=== PATIENT | female | born 1990 | race American Indian/Alaskan Native ===

== ENCOUNTER 2017-01-14 01:40 | Emergency (ER) | payer SELFPAY | END 2017-01-14 01:41 | disposition left against medical advice (07) | LOC: ED 01:40 | DX: R10.9 Unspecified abdominal pain (principal); R11.10 Vomiting, unspecified; R42 Dizziness and giddiness; Z53.21 Procedure and treatment not carried out due to patient leaving prior to being seen by health care provider ==

== ENCOUNTER 2017-02-05 12:19 | Emergency (ER) | payer MEDICAID ==
[2017-02-05 14:31] VITALS: BP 100/62
--- NOTE | 2017-02-05 15:45 | Ultrasound Report ---
OB sonogram: History: Cramping/bleeding. Findings: There is noted single intrauterine gestation with cephalic presentation. Normal NORMA. Placenta is posterior and grade 1. heart rate 138 per minute. Cervical length 3.6 cm. BPD 4.5 cm corresponding to 19 weeks and 5 days of gestation. Head circumference 16.7 cm corresponding to 19 weeks and 3 days of gestation. Abdominal circumference 13.18 cm corresponding to 18 weeks and 5 days of gestation. Femur length 2.1 cm corresponding to 19 weeks and 6 days of gestation. Head circumference to abdominal circumference ratio 1.2. Cephalic index 78.8%. Estimated weight 284 g. Normal neuroanatomy, body anatomy and spine. Clinical age 20 weeks. Estimated date of conception 06/25/17. Ultrasound age 19 weeks and 3 days. Estimated date of conception 06/29/17.
[2017-02-05 16:04] LABS: Basophils % (Auto) 0.4 % (0.0-1.8); Eosinophils % (Auto) 1.9 % (0.0-4.3); Hematocrit 34.8 % (30.3-42.9); Hemoglobin 11.3 gm/dl (10.1-14.3); Mean Corpuscular HGB Conc 33 % (30-34); Mean Corpuscular Hemoglobin 29 pg (28-32); Mean Corpuscular Volume 90 fl (79-97); Platelet Count 199 K/mm3 (140-440); Red Blood Count 3.86 M/mm3 (3.65-5.03); Red Cell Distribution Width 14.2 % (13.2-15.2); White Blood Count 4.6 K/mm3 (4.5-11.0)
--- NOTE | 2017-02-06 14:27 | ED Elopement Review ---
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
== END 2017-02-05 23:15 | disposition left against medical advice (07) ==
LOC: ED 12:19
DX: O26.852 Spotting complicating pregnancy, second trimester (principal); Z3A.20 20 weeks gestation of pregnancy; Z53.21 Procedure and treatment not carried out due to patient leaving prior to being seen by health care provider
CPT/HCPCS: 36415; 76805; 84702; 85025; 86850; 86900; 86901

== ENCOUNTER 2017-06-13 22:22 | Inpatient (IN) | payer MEDICAID ==
--- NOTE | 2017-06-14 00:33 | History and Physical Report ---
History of Present Illness Date of examination: 06/14/17 Date of admission: 06/13/17 23:47 History of present illness: Patient presented to labor and delivery complaints of leaking fluid. Evaluation by nurse in triage revealed rupture membranes with the cervix 2 cm. Menstrual History Regularity: regular Menses every: 28 days Duration: 4 LMP: 09/23/2016 LMP reliability: definite LMP character: normal test type: urine test Date: 11/22/2016 BC at conception: none Planned ? no EDC Calculations LMP: 06/30/2017 EDC Confirmation: 06/30/2017 Past History : 2 Term Births: 1 Living Children: 1 Para: 1 # 1 Delivery date: 10/15/2013 Weeks Gestation: 39 labor: no Delivery type: Anesthesia type: epidural Delivery location: [place] Infant Sex: Male weight: 6-12 Comments: no problems Past Medical History: Negative Past Medical History Past Surgical History: negative Past Medical History Anesthesia Complications: negative Anemia: negative Autoimmune Disorder: negative Bleeding Disorder: negative Blood Transfusions: negative Breast Disease: negative Diabetes: negative Heart Disease: negative Hypertension: negative Hepatitis/Liver Disease: negative Kidney Disease/UTI: negative Neurologic/Epilepsy/Migraines: negative Phlebitis/Varicosities: negative Psychiatric: negative Pulmonary Disease/Asthma: negative Thyroid Disease: negative Hospitalizations: negative Surgery (Non-nurse gynecology): negative Infection History Hx of STD: none HIV Risk Eval: low risk Hepatitis B Risk Eval: low risk Personal hx. of genital herpes: no Partner hx. of genital herpes: no Rash, Viral, or Febrile illness since last LMP? no Varicella/Chicken Pox Status: Immunized TB Risk: no Genetic History Congenital Heart Defect: Mom: no Dad: no Dana Disease: Mom: no Dad: no Thalassemia Mom: no Dad: no Neural Tube Defect Mom: no Dad: no Down's Syndrome Mom: no Dad: no Andrey-Sachs Mom: no Dad: no Sickle Cell Disease/Trait Mom: no Dad: no Hemophilia Mom: no Dad: no Muscular Dystrophy Mom: no Dad: no Cystic Fibrosis Mom: no Dad: no Raghavendra Chorea Mom: no Dad: no Mental Retardation Mom: no Dad: no Fragile X Mom: no Dad: no Other Genetic/Chromosomal Disorder Mom: no Dad: no Child w/other defect Mom: no Dad: no Enviromental Exposures Xray Exposure: no Medication, drug, or alcohol use since LMP: no Chemical/Other Exposure: no Exposure to Cat Liter: no Active Medications (reviewed today): None Current Allergies (reviewed today): No known allergies Past History Past Medical History: other (see HPI) Past Surgical History: other (see HPI) 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: 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 (see HPI) Family/Genetic History: other (see HPI) Social history: other (see HPI) - Obstetrical History Expected Date of Delivery: 06/30/17 Actual Gestation: 37 Week(s) 5 Day(s) : 2 Para: 1 Hx # Term Pregnancies: 1 Number of Pregnancies: 0 Spontaneous Abortions: 0 Induced : 0 Number of Living Children: 1 Medications and Allergies Allergies Allergy/AdvReac Type Severity Reaction Status Date / Time No Known Allergies Allergy Unverified 02/05/17 14:31 Review of Systems Genitourinary: leakage of fluid - Vital Signs Vital signs: Vital Signs Pulse BP 90 111/72 06/13/17 22:34 06/13/17 22:34 Temp Pulse Resp BP Pulse Ox 98.7 F 88 18 112/68 98 06/14/17 00:07 06/14/17 00:18 06/14/17 00:07 06/14/17 00:07 06/14/17 00:18 - Physical Exam Breasts: Positive: deferred Cardiovascular: Regular rate Abdomen: Positive: normal appearance, soft Genitourinary (Female): Positive: normal external genitalia Vagina: Positive: normal moisture Anus/Rectum: Positive: normal perianal skin Extremities: Positive: edema Results All other labs normal. Assessment and Plan - Patient Problems (1) Premature rupture of membranes Current Visit: Yes Status: Acute Qualifiers: PROM onset of labor timing: unspecified duration between rupture of membranes and onset of labor PROM gestational age: full term Qualified Code( s): O42.92 - Full-term premature rupture of membranes, unspecified as to length of time between rupture and onset of labor Plan to address problem: Will admit to follow labor protocol. If from no onset of labor will augment with Pitocin
[2017-06-14] MEDS ORDERED: XYLOCAINE 2% INFILTRATI ONE (00:34)
[2017-06-14] MEDS ORDERED: STADOL IV PRN (00:34)
[2017-06-14] MEDS ORDERED: PHENERGAN PO PRN (00:34)
[2017-06-14] MEDS ORDERED: ePHEDrine SULFATE IV PRN ×2 (00:34→07:30)
[2017-06-14] MEDS ORDERED: BRETHINE SUB-Q PRN (00:34)
[2017-06-14] MEDS ORDERED: BRETHINE IVP PRN (00:34)
[2017-06-14] MEDS ORDERED: PITOCin/NS 30 UNIT/500ML 30,000 MILLIUNITS/500 ML BAG IV ONE (00:53)
[2017-06-14] MEDS ORDERED: PITOCin/NS 20 UNIT/1000ML DRIP 20 UNITS/1,000 ML BAG IV SCH (01:00)
[2017-06-14] MEDS: LACTATED RINGERS 1,000 ML IV SCH ×3 (01:12→08:02)
[2017-06-14 01:21] LABS: Hematocrit 32.1 % (30.3-42.9); Hemoglobin 10.7 gm/dl (10.1-14.3); Mean Corpuscular HGB Conc 33 % (30-34); Mean Corpuscular Hemoglobin 30 pg (28-32); Mean Corpuscular Volume 90 fl (79-97); Platelet Count 244 K/mm3 (140-440); Red Blood Count 3.54 M/mm3 (3.65-5.03); Red Cell Distribution Width 13.5 % (13.2-15.2); White Blood Count 8.7 K/mm3 (4.5-11.0)
[2017-06-14] MEDS ORDERED: SUBLIMAZE ONE ×2 (05:41→06:47)
--- NOTE | 2017-06-14 06:02 | Progress Note ---
Assessment and Plan Epidural bolus infusing tracing low baseline with minimal variability. Ctx Q 1-2 Pit decreased from 16 m,u to 10 mu SVE 3,70,-1 Meconium stained fluid noted now ISE IUPC placed. All findings explained to pt. Pit @ 10 mu Re-eval after epidural Subjective - Subjective Date of service: 06/14/17 Patient reports: movement normal Objective - Vital Signs Vital Signs: Vital Signs - 12hr 06/13/17 06/13/17 06/14/17 22:34 22:45 00:02 Temperature 98.2 F Pulse Rate 90 90 80 Respiratory 18 Rate Blood Pressure 111/72 111/72 112/68 O2 Sat by Pulse Oximetry 06/14/17 06/14/17 06/14/17 00:03 00:07 00:08 Temperature 98.7 F Pulse Rate 80 83 89 Respiratory 18 Rate Blood Pressure 112/68 O2 Sat by Pulse 99 97 98 Oximetry 06/14/17 06/14/17 06/14/17 00:13 00:18 02:07 Temperature Pulse Rate 83 88 85 Respiratory Rate Blood Pressure 90/54 O2 Sat by Pulse 97 98 Oximetry 06/14/17 06/14/17 06/14/17 04:52 04:57 05:02 Temperature Pulse Rate 83 83 87 Respiratory Rate Blood Pressure O2 Sat by Pulse 98 98 98 Oximetry 06/14/17 06/14/17 06/14/17 05:07 05:33 05:38 Temperature Pulse Rate 79 78 64 Respiratory Rate Blood Pressure O2 Sat by Pulse 97 98 99 Oximetry 06/14/17 06/14/17 06/14/17 05:43 05:48 05:53 Temperature Pulse Rate 69 73 91 H Respiratory Rate Blood Pressure O2 Sat by Pulse 99 99 99 Oximetry - Exam Breasts: deferred Cardiovascular: Regular rate Lungs: Normal air movement Abdomen: Present: normal appearance, soft. Absent: distention, tenderness Uterus: Present: normal FHR: auscultation normal, category 1 (low baseline ) Uterine Contraction Monitor Mode: Internal Cervical Dilatation: 3 (ISE/IUPC placed) Cervical Effacement Percentage: 70 station: -1 Uterine Contraction Pattern: Regular (pitocin decreased to 10 MU) Uterine Contraction Intensity: Moderate Extremities: normal - Labs Labs: Abnormal Labs 06/13/17 00:00 RBC 3.54 L Laboratory Results - last 24 hr 06/13/17 06/13/17 00:00 00:00 WBC 8.7 RBC 3.54 L Hgb 10.7 Hct 32.1 MCV 90 MCH 30 MCHC 33 RDW 13.5 Plt Count 244 Blood Type O POSITIVE Antibody Screen Negative
[2017-06-14] MEDS ORDERED: SUBLIMAZE IV ONE ×2 (06:47)
--- NOTE | 2017-06-14 07:23 | Anesthesia Consultation ---
Anesthesia Consult and Med Hx Date of service: 06/14/17 - Airway Anesthetic Teeth Evaluation: Good ROM Head & Neck: Adequate Mental/Hyoid Distance: Adequate Intubation Access Assessment: Probably Good - Pre-Operative Health Status ASA Pre-Surgery Classification: ASA2, Emergency Proposed Anesthetic Plan: Epidural, Spinal - Pulmonary Hx Asthma: No COPD: No Hx Pneumonia: No - Cardiovascular System Hx Hypertension: No - Central Nervous System Hx Seizures: No Hx Psychiatric Problems: No - Endocrine Hx Renal Disease: No Hx End Stage Renal Disease: No Hx Hypothyroidism: No Hx Hyperthyroidism: No - Hematic Hx Anemia: Yes Hx Sickle Cell Disease: No - Other Systems Hx Alcohol Use: No
[2017-06-14] MEDS ORDERED: NARCAN 2 MG/2 ML IV PRN (07:30)
[2017-06-14] MEDS ORDERED: XYLOCAINE MPF 2% ONE (07:37)
--- NOTE | 2017-06-14 07:56 | Progress Note ---
Assessment and Plan Epidural in place SVE 5,90,0 Pit per protocol Anticipate delivery Subjective - Subjective Date of service: 06/14/17 (epidural placed) Patient reports: movement normal Objective - Vital Signs Vital Signs: Vital Signs - 12hr 06/13/17 06/13/17 06/14/17 22:34 22:45 00:02 Temperature 98.2 F Pulse Rate 90 90 80 Respiratory 18 Rate Blood Pressure 111/72 111/72 112/68 O2 Sat by Pulse Oximetry 06/14/17 06/14/17 06/14/17 00:03 00:07 00:08 Temperature 98.7 F Pulse Rate 80 83 89 Respiratory 18 Rate Blood Pressure 112/68 O2 Sat by Pulse 99 97 98 Oximetry 06/14/17 06/14/17 06/14/17 00:13 00:18 02:07 Temperature Pulse Rate 83 88 85 Respiratory Rate Blood Pressure 90/54 O2 Sat by Pulse 97 98 Oximetry 06/14/17 06/14/17 06/14/17 04:52 04:57 05:02 Temperature Pulse Rate 83 83 87 Respiratory Rate Blood Pressure O2 Sat by Pulse 98 98 98 Oximetry 06/14/17 06/14/17 06/14/17 05:07 05:33 05:38 Temperature Pulse Rate 79 78 64 Respiratory Rate Blood Pressure O2 Sat by Pulse 97 98 99 Oximetry 06/14/17 06/14/17 06/14/17 05:43 05:48 05:53 Temperature Pulse Rate 69 73 91 H Respiratory Rate Blood Pressure O2 Sat by Pulse 99 99 99 Oximetry 06/14/17 06/14/17 06/14/17 05:58 06:03 06:08 Temperature Pulse Rate 82 70 67 Respiratory Rate Blood Pressure O2 Sat by Pulse 100 100 99 Oximetry 06/14/17 06/14/17 06/14/17 06:13 06:18 06:23 Temperature Pulse Rate 66 84 61 Respiratory Rate Blood Pressure O2 Sat by Pulse 100 100 100 Oximetry 06/14/17 06/14/17 06/14/17 06:28 06:33 06:38 Temperature Pulse Rate 62 77 86 Respiratory Rate Blood Pressure O2 Sat by Pulse 100 100 100 Oximetry 06/14/17 06/14/17 06/14/17 07:01 07:02 07:04 Temperature Pulse Rate 111 H 114 H 96 H Respiratory Rate Blood Pressure 127/68 111/71 O2 Sat by Pulse 99 Oximetry 06/14/17 06/14/17 06/14/17 07:06 07:07 07:10 Temperature Pulse Rate 104 H 102 H 99 H Respiratory Rate Blood Pressure 108/65 113/67 110/63 O2 Sat by Pulse 98 Oximetry 06/14/17 06/14/17 06/14/17 07:11 07:12 07:14 Temperature Pulse Rate 100 H 99 H 86 Respiratory Rate Blood Pressure 116/82 119/67 O2 Sat by Pulse 98 Oximetry 06/14/17 06/14/17 06/14/17 07:16 07:17 07:18 Temperature Pulse Rate 75 95 H 82 Respiratory Rate Blood Pressure 102/72 111/69 O2 Sat by Pulse 100 Oximetry 06/14/17 06/14/17 06/14/17 07:20 07:22 07:24 Temperature Pulse Rate 85 77 75 Respiratory Rate Blood Pressure 113/71 112/72 114/71 O2 Sat by Pulse 98 Oximetry 06/14/17 06/14/17 06/14/17 07:26 07:27 07:28 Temperature Pulse Rate 83 89 82 Respiratory Rate Blood Pressure 114/68 134/68 O2 Sat by Pulse 99 Oximetry 06/14/17 06/14/17 06/14/17 07:30 07:32 07:34 Temperature Pulse Rate 94 H 95 H 74 Respiratory Rate Blood Pressure 119/75 126/71 117/66 O2 Sat by Pulse 97 Oximetry 06/14/17 06/14/17 06/14/17 07:36 07:37 07:38 Temperature Pulse Rate 89 76 100 H Respiratory Rate Blood Pressure 116/74 122/75 O2 Sat by Pulse 100 Oximetry 06/14/17 06/14/17 06/14/17 07:40 07:42 07:44 Temperature Pulse Rate 95 H 95 H 88 Respiratory Rate Blood Pressure 110/55 114/57 106/57 O2 Sat by Pulse 97 Oximetry - Exam Breasts: deferred Cardiovascular: Regular rate Lungs: Normal air movement Abdomen: Present: normal appearance, soft. Absent: distention, tenderness Uterus: Present: normal FHR: auscultation normal, category 1 Uterine Contraction Monitor Mode: Internal Cervical Dilatation: 5 Cervical Effacement Percentage: 90 station: 0 Uterine Contraction Pattern: Regular Uterine Tone Measurement Phase: Resting Uterine Contraction Intensity: Moderate Extremities: normal Deep Tendon Reflex Grade: Normal +2 - Labs Labs: Abnormal Labs 06/13/17 00:00 RBC 3.54 L Laboratory Results - last 24 hr 06/13/17 06/13/17 00:00 00:00 WBC 8.7 RBC 3.54 L Hgb 10.7 Hct 32.1 MCV 90 MCH 30 MCHC 33 RDW 13.5 Plt Count 244 Blood Type O POSITIVE Antibody Screen Negative
[2017-06-14] MEDS ORDERED: fentaNYL-BUPIV 2 MCG/ML-0.125% 200 MCG/100 ML BAG EPIDURAL SCH (08:00)
[2017-06-14] MEDS ORDERED: CYTOTEC ONE (08:41)
--- NOTE | 2017-06-14 08:59 | Procedure Note ---
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 Pit IVFs Uterus boggy, several lg clots expressed Cytotec 800mcg HI placed 2-0 vicryl for repair 8/9, EBL 500, Wgt 6-14 Baby skin to skin with dad. FF @ umb Lochia mod Mom and baby remain LDR stable. - A at 1 minute: 8 at 5 minutes: 9 Infant Gender: Male (wgt 6-14)
[2017-06-14] MEDS ORDERED: CYTOTEC PR ONE (09:05)
[2017-06-14] MEDS ORDERED: LANSINOH TP PRN (09:07)
[2017-06-14] MEDS ORDERED: BENADRYL PO PRN (09:07)
[2017-06-14] MEDS ORDERED: MILK OF MAGNESIA PO PRN (09:07)
[2017-06-14] MEDS ORDERED: ZOFRAN IV PRN (09:07)
[2017-06-14] MEDS ORDERED: TUCKS PAD TP PRN (09:07)
[2017-06-14] MEDS ORDERED: DULCOLAX PR PRN (09:07)
[2017-06-14] MEDS ORDERED: TYLENOL PO PRN (09:07)
[2017-06-14] MEDS ORDERED: PRENATAL VITAMIN PO SCH (10:00)
[2017-06-14] MEDS ORDERED: COLACE PO SCH (10:00)
[2017-06-14] MEDS ORDERED: SODIUM CHLORIDE FLUSH SYRINGE 10 ML IV NR (10:00)
[2017-06-14 18:17] LABS: Hematocrit 29.3 % (30.3-42.9)
[2017-06-14] MEDS: NORCO 5/325 PO PRN (19:22)
[2017-06-14] MEDS: MOTRIN PO SCH (21:43)
[2017-06-15] MEDS: NORCO 5/325 PO PRN ×3 (01:11→18:07)
[2017-06-15] MEDS: MOTRIN PO SCH ×2 (04:02→13:08)
[2017-06-15] MEDS ORDERED: BOOSTRIX IM ONE ×2 (06:00→09:07)
--- NOTE | 2017-06-15 08:41 | Progress Note ---
Assessment and Plan Patient doing well, desires d/c home today. Pooja pricila, RONNYSAF, H&H 08/19, without concern. Plan for d/c home today w/ f/u 1 week in office for infant's circ. - Patient Problems (1) Spontaneous vaginal delivery Current Visit: Yes Status: Acute Subjective - Subjective Date of service: 06/15/17 Principal diagnosis: day #1 s/p Patient reports: appetite normal, voiding normally, pain well controlled, ambulating normally, no dizzy ambulation, no nauseated : doing well, nursing well Objective - Vital Signs Latest vital signs: Vital Signs Temp Pulse Resp BP Pulse Ox 06/15/17 00:40 98.1 F 74 18 96/63 06/14/17 19:50 98.6 F 74 18 98/67 06/14/17 16:45 98.1 F 64 18 112/71 06/14/17 10:50 98.3 F 80 20 116/70 06/14/17 09:45 109 H 100 06/14/17 09:40 104 H 99 06/14/17 09:35 107 H 100 06/14/17 09:30 107 H 100 06/14/17 09:22 97.8 F 100 H 16 100/58 90 06/14/17 09:06 110 H 90 06/14/17 09:05 113 H 96 06/14/17 09:00 105 H 96 06/14/17 08:45 105 H 99 Intake and Output 06/14/17 06/15/17 06/15/17 22:59 06:59 14:59 Intake Total 605 480 Output Total 700 Balance -95 480 Intake: IV 125 PITOCin/NS 20 UNIT/1000ML 125 DRIP 20 units In 1,000 ml @ 125 mls/hr IV DIRECT JOSH Rx#:[id number] Oral 480 480 Output: Urine 700 Void 700 Other: Total, Intake Amount 240 240 Total, Output Amount 700 # Voids Void 1 1 - Exam Breasts: Present: normal, Cardiovascular: Present: Regular rate Lungs: Present: Clear to auscultation, Normal air movement Abdomen: Present: normal appearance, soft Vulva: both: laceration/episiotomy Uterus: Present: normal, firm, fundal height at umbilicus Extremities: Present: normal Deep Tendon Reflex Grade: Normal +2 Incision: Present: normal, dry, intact - Labs Labs: Abnormal lab results 06/14/17 Range/Units 17:53 Hgb 10.0 L (10.1-14.3) gm/dl Hct 29.3 L (30.3-42.9) %
--- NOTE | 2017-06-15 08:43 | Discharge Summary ---
Providers - Providers Date of Admission: 06/13/17 23:47 Date of discharge: 06/15/17 (desires d/c home) Attending physician: ADALI HIDALGO Primary care physician: ADALI HIDALGO Hospitalization Reason for admission: active labor Delivery: Episiotomy: midline Laceration: none Incision: normal, dry, intact Other procedures: none complications: none Discharge diagnosis: IUP at term delivered baby: male Hospital course: uncomplicated vaginal delivery Condition at discharge: Good Disposition: DC-01 TO HOME OR SELFCARE - Discharge Diagnoses (1) Spontaneous vaginal delivery Status: Acute Plan - Discharge Medications Prescriptions: Ibuprofen [Motrin 800 MG tab] 800 mg PO Q8HR PRN #30 tablet PRN Reason: Pain Lidocain2.5%/Prilocai2.5% [Emla] 5 gm TP ONCE PRN #1 tube PRN Reason: Pain - Provider Discharge Summary Activity: routine, no sex for 6 weeks, no heavy lifting 4 weeks, no strenuous exercise Diet: routine Instructions: routine Additional instructions: [] Smoking cessation referral if applicable(refer to patient education folder for contact #) [] Refer to [facility] Booklet Call your doctor immediately for: * Fever > 100.5 * Heavy vaginal bleeding ( >1 pad per hour) * Severe persistent headache * Shortness of breath * Reddened, hot, painful area to leg or breast * Drainage or odor from incision. * Keep incision clean and dry at all times and follow doctor's instructions regarding bathing/showering - Follow up plan Follow up: ADALI HIDALGO MD [Primary Care Provider] - 7 Days (Congratulations! Please call [phone] to schedule your son's circumcision in 1 week and your visit in 4 weeks. Bring EMLA cream to your son's appointment and await further instructions. Call for any questions or concerns.)
[2017-06-15] MEDS ORDERED: M-M-R II VACCINE SUB-Q ONE (09:07)
--- NOTE | 2017-06-15 09:52 | Progress Note ---
Subjective Date of service: 06/15/17 Principal diagnosis: day #1 s/p Interval history: Patient seen, satisfied with CSE for delivery, ambulating, with pain level of zero. Objective - Constitutional Vitals: Vital Signs - 12hr 06/15/17 06/15/17 06/15/17 00:40 08:00 08:43 Temperature 98.1 F 98.2 F Pulse Rate 74 72 Respiratory 18 18 18 Rate Blood Pressure 96/63 102/69 - Labs CBC & Chem 7: 06/14/17 17:53 Labs: Abnormal lab results 06/14/17 Range/Units 17:53 Hgb 10.0 L (10.1-14.3) gm/dl Hct 29.3 L (30.3-42.9) %
[2017-06-15 18:53] VITALS: BP 109/73
== END 2017-06-15 23:15 | disposition home or self-care (01) | DRG 775 ==
LOC: TRG 22:22 → LD 23:47 → OB 06-14 11:28
PROVIDERS: ADMIT Obstetrics & Gynecology; ATTEND Obstetrics & Gynecology
PROC: 10E0XZZ Delivery of Products of Conception, External Approach (ICD-10-PCS; principal; 2017-06-14)
PROC: 0W8NXZZ Division of Female Perineum, External Approach (ICD-10-PCS; 2017-06-14)
PROC: 3E0S3CZ (ICD-10-PCS; 2017-06-14)
PROC: 00HU33Z Insertion of Infusion Device into Spinal Canal, Percutaneous Approach (ICD-10-PCS; 2017-06-14)
PROC: 3E0234Z Introduction of Serum, Toxoid and Vaccine into Muscle, Percutaneous Approach (ICD-10-PCS; 2017-06-15)
DX: O42.92 Full-term premature rupture of membranes, unspecified as to length of time between rupture and onset of labor (principal); Z37.0 Single live birth; Z3A.37 37 weeks gestation of pregnancy; O70.1 Second degree perineal laceration during delivery; Z23 Encounter for immunization
CPT/HCPCS: 36415; 85014; 85018; 85027; 86850; 86900; 86901; 90471; 90715; 99211; G0463; J2590; J3010; J7120

== ENCOUNTER 2019-01-17 11:42 | Outpatient (CLI) | payer MEDICAID ==
[2019-01-17 12:10] VITALS: BP 96/55
[2019-01-17] MEDS ORDERED: LACTATED RINGERS 500 ML IV ONE (12:12)
[2019-01-17 13:06] LABS: Bacteria,Urine 2+ /HPF (Negative); Bilirubin,Urine NEG (Negative); Blood,Urine NEG (Negative); Color,Urine Yellow (Yellow); Mucus,Urine 1+ /HPF; Protein,Urine <15 mg/dL mg/dL (Negative)
[2019-01-17] MEDS ORDERED: BRETHINE SUB-Q STA (13:25)
[2019-01-17] MEDS ORDERED: TYLENOL PO ONE (15:01)
== END 2019-01-17 15:38 | disposition home or self-care (01) ==
LOC: TRG 11:42
PROVIDERS: ATTEND Obstetrics & Gynecology
DX: O21.2 Late vomiting of pregnancy (principal); O26.893 Other specified pregnancy related conditions, third trimester; M54.9 Dorsalgia, unspecified; R25.2 Cramp and spasm; Z3A.30 30 weeks gestation of pregnancy
CPT/HCPCS: 59025; 81001; 96372; J3105; J7120; 96360; 96361

== ENCOUNTER 2019-02-28 00:11 | Inpatient (IN) | payer MEDICAID ==
[2019-02-28] MEDS ORDERED: LACTATED RINGERS 500 ML IV ONE (00:37)
[2019-02-28] MEDS ORDERED: LACTATED RINGERS 1,000 ML ONE ×2 (00:45→02:00)
--- NOTE | 2019-02-28 02:57 | Ultrasound Report ---
PROCEDURE: US OB BPP WO NON-STRESS TECHNIQUE: Sonographic evaluation for breathing, movement, tone, and amniotic flui d volume was performed. HISTORY: labor for bpp COMPARISONS: None . FINDINGS: FETUS Amniotic fluid volume Normal-score 2. At least one vertical pocket >2 cm or more in vertical axis . breathin . movement: 0 . tone: 0 . Score: 2 . IMPRESSION: Biophysical profile score of 2 out of 8 . This document is electronically signed by Shari Valladares DO., Feb 28 2019 02:55:10 AM ET
[2019-02-28] MEDS ORDERED: REGLAN IV ONE (03:11)
[2019-02-28] MEDS ORDERED: PEPCID IV ONE ×2 (03:11→03:14)
[2019-02-28] MEDS ORDERED: BICITRA PO ONE (03:11)
[2019-02-28] MEDS ORDERED: ANCEF/STERILE WATER 2 GM/20 ML 2 GM/20 ML SYRINGE IV ONE (03:14)
[2019-02-28] MEDS ORDERED: REGLAN ONE (03:14)
[2019-02-28] MEDS ORDERED: BICITRA ONE (03:14)
--- NOTE | 2019-02-28 03:21 | History and Physical Report ---
<KIMI DYER Luli - Last Filed: 02/28/19 03:13> History of Present Illness Date of examination: 02/28/19 Chief complaint: s/p fall @ 2200, no movement all day yesterday History of present illness: EDC Confirmation: 03/23/2019 Past History : 3 Term Births: 2 Living Children: 2 Para: 2 # 1 Delivery date: 10/15/2013 Weeks Gestation: 39 labor: no Delivery type: Anesthesia type: epidural Delivery location: [place] Sex: Male weight: 6-12 Comments: no problems # 2 Delivery date: 06/14/2017 Weeks Gestation: 37 Delivery type: Vaginal Anesthesia type: epidural Delivery location: [facility] Infant Sex: male weight: 6.88 Comments: rupture of membranes Past Medical History: Reviewed history from 11/22/2016 and no changes required: Negative Past Medical History Past Surgical History: Reviewed history from 11/22/2016 and no changes required: negative Past Medical History Anesthesia Complications: negative Anemia: negative Autoimmune Disorder: negative Bleeding Disorder: negative Blood Transfusions: negative Breast Disease: negative Diabetes: negative Heart Disease: negative Hypertension: negative Hepatitis/Liver Disease: negative Kidney Disease/UTI: negative Neurologic/Epilepsy/Migraines: negative Phlebitis/Varicosities: negative Psychiatric: negative Pulmonary Disease/Asthma: negative Thyroid Disease: negative Hospitalizations: negative Surgery (Non-gmat instructor): negative Abnormal PAP: negative VIELKA Exposure: negative Infertility: negative Uterine Anomaly: negative Uterine Surgery (not C/S): negative Other Gynecologic Problems: negative Infection History Hx of STD: none HIV Risk Eval: low risk Hepatitis B Risk Eval: low risk Personal hx. of genital herpes: no Partner hx. of genital herpes: no Rash, Viral, or Febrile illness since last LMP? no Varicella/Chicken Pox Status: Immunized Genetic History Congenital Heart Defect: Mom: no Dad: no Dana Disease: Mom: no Dad: no Thalassemia Mom: no Dad: no Neural Tube Defect Mom: no Dad: no Down's Syndrome Mom: no Dad: no Andrey-Sachs Mom: no Dad: no Sickle Cell Disease/Trait Mom: no Dad: no Hemophilia Mom: no Dad: no Muscular Dystrophy Mom: no Dad: no Cystic Fibrosis Mom: no Dad: no Raghavendra Chorea Mom: no Dad: no Mental Retardation Mom: no Dad: no Fragile X Mom: no Dad: no Other Genetic/Chromosomal Disorder Mom: no Dad: no Child w/other defect Mom: no Dad: no Enviromental Exposures Xray Exposure: no Medication, drug, or alcohol use since LMP: no Chemical/Other Exposure: no Exposure to Cat Liter: no Hx of Parvovirus (Fifth Disease): no Occupational Exposure to Children: none Active Medications (reviewed today): None Current Allergies: No known allergies Past History Past Medical History: other (see HPI) Past Surgical History: other (see HPI) CHOKE REAMER History: other (see HPI) Family/Genetic History: other (see HPI) - Obstetrical History Expected Date of Delivery: 03/23/19 Actual Gestation: 36 Week(s) 5 Day(s) : 3 Para: 2 Hx # Term Pregnancies: 2 Number of Pregnancies: 0 Spontaneous Abortions: 0 Induced : 0 Number of Living Children: 2 Medications and Allergies Allergies Allergy/AdvReac Type Severity Reaction Status Date / Time No Known Allergies Allergy Verified 06/14/17 00:38 Home Medications Medication Instructions Recorded Confirmed Last Taken Type Ibuprofen [Motrin 800 MG tab] 800 mg PO Q8HR PRN #30 tablet 06/15/17 Unknown Rx Lidocain2.5%/Prilocai2.5% [Emla] 5 gm TP ONCE PRN #1 tube 06/15/17 Unknown Rx Review of Systems All systems: negative - Vital Signs Vital signs: Vital Signs Pulse BP 94 H 101/56 02/28/19 00:21 02/28/19 00:21 Temp Pulse Resp BP Pulse Ox 85 95/53 02/28/19 02:42 02/28/19 02:42 - Physical Exam Breasts: Positive: normal Cardiovascular: Regular rate Lungs: Positive: Clear to auscultation, Normal air movement Abdomen: Positive: normal appearance, soft Genitourinary (Female): Positive: normal external genitalia - Obstetrical FHR: category 3 FHR comments: BPP 2/10 for NORMA only Uterine Contraction Monitor Mode: External Uterine Contraction Pattern: Irregular Uterine Tone Measurement Phase: Contraction Uterine Contraction Intensity: Mild Results All other labs normal. Assessment and Plan 28y/o @ 36+5 WEEKS admitted for nonreassuring status s/p fall. Pt reports falling down 7 stairs @ 2200 last night, states she feel on her butt and bumped down the stairs. at that time, she realized she had not felt the baby move all day yesterday. FHT with min variability upon admission, did not improve after IVF hydration. BPP 2/8 for NORMA. several late decels noted on tracing. Dr. Josue bliss and lei. discussed with patient need for urgent delivery as baby is showing signs of distress, she is not in labor and remote from [facility]. c/s delivery is advisable as baby is not likely to tolerate IOL. Advised patient risks of c/s including but not limited to damage or injury to surrounding organs and need for blood transfusion. pt agrees and wishes to proceed with operative delivery. Consents signed. pre-op orders in EMR. - Patient Problems (1) Non-reassuring status Current Visit: Yes Status: Acute (2) Status post fall Current Visit: Yes Status: Acute (3) 36 weeks gestation of Current Visit: Yes Status: Acute <ADALI HIDALGO - Last Filed: 02/28/19 08:26> History of Present Illness Date of admission: 02/28/19 03:11 Chief complaint: Ms Magaña called on 02/25/2019 at approxiamately 2200 with a complaint of bloody urine cramping. At that time patient was advised to go to labor and delivery for evaluation but she did not comply with that advice. Medications and Allergies Active Meds: Active Medications Acetaminophen (Tylenol) 650 mg PO Q4H PRN PRN Reason: Fever >100.5/FOSTER Diphtheria/Tetanus/Acell Pertussis (Boostrix) 0.5 ml IM .ONCE ONE Stop: 03/01/19 06:01 Ferrous Sulfate (Feosol) 325 mg PO QDAY JOSH Hydromorphone HCl (Dilaudid) 0.5 mg IV Q4H PRN PRN Reason: breakthrough pain > 7/10 Hydromorphone HCl (Dilaudid) 0.5 mg IV Q5M PRN PRN Reason: Breakthrough Pain Stop: 02/28/19 08:59 Last Admin: 02/28/19 05:21 Dose: 0.5 mg Documented by: Hydromorphone/Sodium Chloride (Dilaudid Receptionist Telephone Operator 6mg/30ml) 0 mg IV DIRECT JOSH; Protocol Last Admin: 02/28/19 05:00 Dose: 6 mg Documented by: Oxytocin/Sodium Chloride (Pitocin/Ns 20 Unit/1000ml Drip) 20 units in 1,000 mls @ 250 mls/hr IV DIRECT JOSH Cefazolin Sodium (Ancef/Ns 1 Gm/50 Ml) 1 gm in 50 mls @ 100 mls/hr IV Q8H [facility] Stop: 02/28/19 15:33 Lactated Ringer's (Lactated Ringers) 1,000 mls @ 125 mls/hr IV DIRECT [facility] Last Admin: 02/28/19 07:40 Dose: 125 mls/hr Documented by: Ibuprofen (Motrin) 800 mg PO Q6H PRN PRN Reason: Pain, Mild (1-3) Ketorolac Tromethamine (Toradol) 30 mg IV Q6H PRN PRN Reason: Pain, Moderate (4-6) Stop: 03/05/19 07:29 Multi-Ingredient Ointment (Lansinoh) 1 applic TP PRN PRN PRN Reason: dryness/cracking Multivitamins/Iron/Calcium ( Vitamin) 1 each PO QDAY [facility] Naloxone HCl (Narcan 0.4 Mg/1 Ml) 0.1 mg IV Q2MIN PRN PRN Reason: Res Rate </= 8 or 02 SAT < 92% Naloxone HCl (Narcan 0.4 Mg/1 Ml) 0.1 mg IV Q2MIN PRN PRN Reason: Res Rate </= 8 or 02 SAT < 92% Ondansetron HCl (Zofran) 4 mg IV Q8H PRN PRN Reason: Nausea And Vomiting Oxycodone/Acetaminophen (Percocet 5/325) 1 tab PO Q6H PRN PRN Reason: Pain, Moderate (4-6) Promethazine HCl (Phenergan) 25 mg PO Q6H PRN PRN Reason: Nausea And Vomiting Promethazine HCl (Phenergan) 25 mg NJ Q6H PRN PRN Reason: Nausea And Vomiting Sodium Chloride (Sodium Chloride Flush Syringe 10 Ml) 10 ml IV PRN PRN PRN Reason: flush Witch Anila/Glycerin (Tucks Pad) 1 each TP PRN PRN PRN Reason: Hemorrhoids/cleansing/soothing - Vital Signs Vital signs: Vital Signs Pulse BP 94 H 101/56 02/28/19 00:21 02/28/19 00:21 Temp Pulse Resp BP Pulse Ox 98.3 F 75 20 100/80 98 02/28/19 05:28 02/28/19 05:20 02/28/19 05:50 02/28/19 05:50 02/28/19 05:50 Results Result Diagrams: 02/28/19 00:30 Abnormal lab results 02/28/19 Range/Units 00:30 RBC 3.26 L (3.65-5.03) M/mm3 Hgb 10.0 L (10.1-14.3) gm/dl Hct 29.8 L (30.3-42.9) % Lymph # 0.8 L (1.2-5.4) K/mm3 Seg Neutrophils % 75.6 H (40.0-70.0) % All other labs normal.
[2019-02-28] MEDS ORDERED: DIPRIVAN 10 MG/ML IV ONE ×2 (03:30→04:21)
[2019-02-28] MEDS ORDERED: VERSED ONE (03:32)
[2019-02-28] MEDS ORDERED: XYLOCAINE MPF 2% ONE (03:33)
[2019-02-28] MEDS ORDERED: ZOFRAN ONE (03:34)
[2019-02-28] MEDS ORDERED: TORADOL ONE (03:34)
[2019-02-28] MEDS ORDERED: SUBLIMAZE ONE (03:37)
[2019-02-28 03:40] LABS: Basophils % (Auto) 0.5 % (0.0-1.8); Eosinophils # (Auto) 0.1 K/mm3 (0.0-0.4); Eosinophils % (Auto) 1.5 % (0.0-4.3); Hematocrit 29.8 % (30.3-42.9); Lymphocytes # (Auto) 0.8 K/mm3 (1.2-5.4); Lymphocytes % (Auto) 16.3 % (13.4-35.0); Mean Corpuscular HGB Conc 34 % (30-34); Mean Corpuscular Volume 92 fl (79-97); Monocytes # (Auto) 0.3 K/mm3 (0.0-0.8); Monocytes % (Auto) 6.1 % (0.0-7.3); Platelet Count 157 K/mm3 (140-440); Red Blood Count 3.26 M/mm3 (3.65-5.03); Red Cell Distribution Width 13.5 % (13.2-15.2)
[2019-02-28] MEDS ORDERED: LACTATED RINGERS 1,000 ML IV SCH ×2 (04:00→08:00)
[2019-02-28] MEDS ORDERED: PITOCin/NS 20 UNIT/1000ML DRIP 20 UNITS/1,000 ML BAG IV SCH ×2 (04:00→07:30)
[2019-02-28] MEDS ORDERED: ANCEF/STERILE WATER 2 GM/20 ML 2 GM/20 ML SYRINGE IV NR (04:00)
[2019-02-28] MEDS ORDERED: QUELICIN ONE (04:11)
[2019-02-28] MEDS ORDERED: ZEMURON IV ONE (04:11)
[2019-02-28] MEDS ORDERED: ROBINUL ONE (04:17)
[2019-02-28] MEDS ORDERED: BLOXIVERZ ONE (04:17)
[2019-02-28] MEDS ORDERED: NARCAN 0.4 MG/1 ML IV PRN ×4 (04:28→07:30)
[2019-02-28] MEDS ORDERED: DILAUDID ONE ×2 (04:34)
[2019-02-28] MEDS ORDERED: DILAUDID IV PRN (04:56)
[2019-02-28] MEDS ORDERED: PHENERGAN PO PRN (04:56)
[2019-02-28] MEDS ORDERED: ZOFRAN IV PRN ×2 (04:56→07:30)
[2019-02-28] MEDS ORDERED: PHENERGAN PR PRN (04:56)
--- NOTE | 2019-02-28 04:59 | Anesthesia Day of Surgery ---
Anesthesia Day of Surgery - Day of Surgery Patient Examined: Yes Patient H&P Reviewed: Yes Patient is NPO: Yes Beta Blockers: No Cardiac Clearance: No Pulmonary Clearance: No Pedro's Test: N/A
--- NOTE | 2019-02-28 04:59 | Anesthesia Consultation ---
Anesthesia Consult and Med Hx Date of service: 02/28/19 - Airway Anesthetic Teeth Evaluation: Good ROM Head & Neck: Adequate Mental/Hyoid Distance: Adequate Mallampati Class: Class II Intubation Access Assessment: Good - Pulmonary Exam CTA: Yes - Cardiac Exam Cardiac Exam: RRR - Pre-Operative Health Status ASA Pre-Surgery Classification: ASA2, ASA3, Emergency Proposed Anesthetic Plan: General - Pulmonary Hx Smoking: No Hx Asthma: No Hx Respiratory Symptoms: No SOB: No COPD: No Home Oxygen Therapy: No Hx Pneumonia: No Hx Sleep Apnea: No - Cardiovascular System Hx Hypertension: No Hx Coronary Artery Disease: No Hx Heart Attack/AMI: No Hx Angina: No Hx Percutaneous Transluminal Coronary Angioplasty (PTCA): No Hx Cardia Arrhythmia: No Hx Pacemaker: No Hx Internal Defibrillator: No Hx Valvular Heart Disease: No Hx Heart Murmur: No Hx Peripheral Vascular Disease: No - Central Nervous System Hx Neuromuscular Disorder: No Hx Seizures: No CVA: No Hx Back Pain: No Hx Psychiatric Problems: No - Gastrointestinal Hx Ulcer: No Hx Gastroesophageal Reflux Disease: No - Endocrine Hx Renal Disease: No Hx End Stage Renal Disease: No Hx Cirrhosis: No Hx Liver Disease: No Hx Insulin Dependent Diabetes: No Hx Non-Insulin Dependent Diabetes: No Hx Thyroid Disease: No Hx Hypothyroidism: No Hx Hyperthyroidism: No - Hematic Hx Anemia: No Hx Sickle Cell Disease: No - Other Systems Hx Alcohol Use: No Hx Substance Use: No Hx Cancer: No Hx Obesity: No
[2019-02-28] MEDS ORDERED: DILAUDID PCA 6MG/30ML IV SCH ×2 (05:00)
[2019-02-28] MEDS ORDERED: SODIUM CHLORIDE FLUSH SYRINGE 10 ML IV PRN ×2 (05:00→07:30)
--- NOTE | 2019-02-28 05:00 | Post Anesthesia Evaluation ---
- Post Anesthesia Evaluation Patient Participated: Yes Airway Patent: Yes Stable Respiratory Function: Yes Nausea/Vomiting: Yes Temp > 96.8F: Yes Pain Manageable: Yes Adequeate Hydration: Yes Anesthesia Complications: No Block Receding Appropriately: Not Applicable Patient on Ventilator: No
[2019-02-28] MEDS: DILAUDID IV PRN ×2 (05:15→05:21)
[2019-02-28] MEDS ORDERED: TUCKS PAD TP PRN (07:30)
[2019-02-28] MEDS ORDERED: LANSINOH TP PRN (07:30)
[2019-02-28] MEDS ORDERED: TYLENOL PO PRN (07:30)
[2019-02-28] MEDS ORDERED: TORADOL IV PRN (07:30)
--- NOTE | 2019-02-28 08:19 | Operative Report ---
Operative Report Operative Report: Date of procedure: 02/28/2019 Pre-operative diagnosis: Intrauterine at 36 weeks 5 days . Nonreassuring heart rate remote from delivery and biophysical profile of 2 out of 10 Post-operative diagnosis: Same Procedure name(s): Stat primary low transverse section Surgeon: Hero Salas MD Solar Sales Estimator: Herminia Herrmann, certified nurse lead nuclear medicine technologist Anesthesia: Gen. EBL: 600 mL Complications: None Findings: Patient with normal tubes and ovaries bilaterally normal-appearing uterus. Male infant weight 5 lbs. 15 oz. spell that time of delivery Apgars 1 at 1 minute and 5 at 5 minutes. Had clear amniotic fluid and no signs of abruption. Nursery personnel doing performing the patient had a superficial laceration of his scalp Specimen(s): Placenta Procedure: patient was brought to the operating room in a stat fashion. She was then placed in left lateral tilt. Patient was prepped in usual sterile manner. Gen. anesthesia was induced while I was scrubbing for the surgery. Once I was in the room the patient was draped in a stat manner. A Pfannenstiel incision was made. This incision was taken down to the fascia. The fascia was then nicked in the midline. This incision was extended out laterally with Astorga scissors. The fascia was then sharply and bluntly from the underlying rectus muscles. The rectus muscles were bluntly and sharply . The peritoneum was then entered with the dimmer board operator's fingers. This incision was spread vertically with care not to damage the bladder below. Bladder blade was placed. The bladder flap was then formed sharply and bluntly with Metzenbaum scissors. Bladder blade replaced. A transverse incision was made in lower uterine segment. This incision was extended laterally with the operators fingers. The amniotic sac was then entered bluntly with the dimmer board operator's fingers. The was delivered from the vertex position. Bulb suction on the mother's abdomen. Cord was double clamped and cut. The infant was then passed to the nursery personnel who were in attendance. The above scores were given by the nursery personnel. The placenta was then bluntly removed. The uterus was then externalized and wiped clean the remaining products. The uterine incision was closed in layers. The first incision was closed in a locking manner using 0 Vicryl. This was followed by imbricating stitch also with 0 Vicryl. This closure was hemostatic. The bladder flap was copiously irrigated and found to be hemostatic. The pelvis was copiously irrigated and found to be hemostatic. The uterus was then placed back to the patient's abdomen. The retractors were removed. The rectus muscles were inspected and found to be hemostatic. The fascia was then closed in a running manner using 0 Vicryl. This incision was hemostatic irrigation Bovie. The skin was reapproximated with 4-0 Vicryl subcuticularly. The patient tolerated procedure well. Her urine was clear. The was admitted to the intensive care nursery. The patient was accompanied to recovery room in good condition. Instrument count correct 3.
--- NOTE | 2019-02-28 08:34 | Event Note ---
Date: 02/28/19 We'll obtain a Dion due to the fact that her infant is severely anemic and then transferred to [facility]
[2019-02-28] MEDS: ANCEF/NS 1 GM/50 ML 1 GM/50 ML BAG IV SCH ×2 (10:37→11:30)
[2019-02-28 18:02] LABS: Hematocrit 24.6 % (30.3-42.9); Hemoglobin 8.2 gm/dl (10.1-14.3)
[2019-02-28] MEDS: PERCOCET 5/325 PO PRN (22:18)
[2019-02-28] MEDS: IBUPROFEN PO PRN (22:18)
[2019-03-01] MEDS ORDERED: BOOSTRIX IM ONE (06:00)
[2019-03-01] MEDS: IBUPROFEN PO PRN ×3 (06:36→21:55)
[2019-03-01] MEDS: FEOSOL PO SCH ×2 (10:22→10:23)
[2019-03-01] MEDS: PRENATAL VITAMIN PO SCH ×2 (10:24→10:26)
[2019-03-01] MEDS: PERCOCET 5/325 PO PRN ×2 (10:24→17:52)
--- NOTE | 2019-03-01 12:04 | Progress Note ---
Assessment and Plan POD 1. Patient reports feeling well, no complaints. Fundus furm, ML, U/1. Vaginal bleeding is minimal. Patient denies any heavy bleeding or clots. Incision is dressed, C/D/I. Encouraged patient to shower today and remove dressing. DWP good hygiene for incision area. She reports pain is well controlled with medications. Pt is continuing to pump EBM for infant. Encouraged increased water intake. VSSAF. Patient denies any dizziness or feeling faint with position changes or ambulation. Iron and colace ordered and Rx on chart to continue at discharge. Encouraged patient to continue ambulation and use of IS. Will assess tomorrow for possible discharge home. Subjective - Subjective Date of service: 03/01/19 Principal diagnosis: POD 1 s/p primary c/s Patient reports: appetite normal, voiding normally, pain well controlled, ambulating normally [place]: other (at [place], doing well per patient) Objective - Vital Signs Latest vital signs: Vital Signs Temp Pulse Resp BP BP Pulse Ox 03/01/19 08:30 98 F 63 20 96/52 03/01/19 00:32 98.1 F 94 H 16 97/55 97 02/28/19 20:44 98.3 F 56 L 16 91/56 100 02/28/19 16:24 97.7 F 16 L 16 95/60 97 02/28/19 12:21 97.5 F L 52 L 18 81/41 97 Intake and Output 02/28/19 03/01/19 03/01/19 23:59 07:59 15:59 Intake Total 720 240 360 Output Total 700 800 Balance 20 -560 360 Intake: Oral 480 360 Intake, Free Water 240 240 Output: Urine 700 800 Indwelling Catheter 200 Void 500 800 Other: Total, Intake Amount 480 360 Total, Output Amount 300 800 # Voids Void 2 3 # Bowel Movements 0 - Exam Breasts: Present: normal Cardiovascular: Present: Regular rate, Normal S1, Normal S2 Lungs: Present: Clear to auscultation Abdomen: Present: normal appearance, soft, normal bowel sounds Vulva: both: normal Uterus: Present: normal, firm Extremities: Present: normal Deep Tendon Reflex Grade: Normal +2 Incision: Present: normal, dry, intact - Labs Labs: Abnormal lab results 02/28/19 Range/Units 17:38 Hgb 8.2 L (10.1-14.3) gm/dl Hct 24.6 L (30.3-42.9) %
[2019-03-02 08:19] VITALS: BP 108/74
--- NOTE | 2019-03-02 08:42 | Discharge Summary ---
Providers - Providers Date of Admission: 02/28/19 03:11 Date of discharge: 03/02/19 (pt desires d/c) Attending physician: ADALI HIADLGO Primary care physician: ADALI HIDALGO Hospitalization Reason for admission: other (s/p fall; NRFT and testing) Delivery: Procedure: primary low transverse (emergency distress) Episiotomy: none Laceration: none Incision: normal, dry, intact Other procedures: none complications: none Discharge diagnosis: delivery baby: male (baby transfered to [facility]) Hospital course: uncomplicated emergency primary section for distress Pt A&O X 3 No c/o voiced VSS FF below umb Lochia scant Incision D&I Pt is asymptomatic anemia Doing well s/p section P: d/c today with instructions RTO 1 week Nexplanon for BC Condition at discharge: Good Disposition: DC-01 TO HOME OR SELFCARE - Discharge Diagnoses (1) delivery delivered Status: Acute Comment: RTO 1 week Postop care Plan - Discharge Medications Prescriptions: Docusate Sodium [Colace] 100 mg PO BID PRN #60 capsule PRN Reason: Constipation Ferrous Sulfate [Feosol 325 MG tab] 325 mg PO BID #60 tablet Ibuprofen [Motrin 800 MG tab] 800 mg PO TID PRN #30 tablet PRN Reason: Pain oxyCODONE /ACETAMINOPHEN [Percocet 5/325 mg] 1 - 2 tab PO Q4HR PRN #20 tablet PRN Reason: Pain - Provider Discharge Summary Activity: routine, no sex for 6 weeks, no heavy lifting 4 weeks, no strenuous exercise Diet: routine Instructions: routine Additional instructions: [] Smoking cessation referral if applicable(refer to patient education folder for contact #) [] Refer to [facility] Booklet Call your doctor immediately for: * Fever > 100.5 * Heavy vaginal bleeding ( >1 pad per hour) * Severe persistent headache * Shortness of breath * Reddened, hot, painful area to leg or breast * Drainage or odor from incision. * Keep incision clean and dry at all times and follow doctor's instructions regarding bathing/showering - Follow up plan Follow up: ADALI HIDALGO MD [Primary Care Provider] - 7 Days (Congratulations! Please call [phone] to schedule your postoperative visit in one week. Take medications as prescribed. Call with concerns.)
[2019-03-02] MEDS: FEOSOL PO SCH (09:42)
[2019-03-02] MEDS: PRENATAL VITAMIN PO SCH (09:42)
== END 2019-03-02 13:00 | disposition home or self-care (01) | DRG 766 ==
LOC: TRG 00:11 → APU 03:11 → OB 07:55
PROVIDERS: ADMIT Obstetrics & Gynecology; ATTEND Obstetrics & Gynecology
PROC: 10D00Z1 Extraction of Products of Conception, Low, Open Approach (ICD-10-PCS; principal; 2019-02-28)
PROC: 3E0234Z Introduction of Serum, Toxoid and Vaccine into Muscle, Percutaneous Approach (ICD-10-PCS; 2019-03-01)
DX: O60.14X0 Preterm labor third trimester with preterm delivery third trimester, not applicable or unspecified (principal); O76 Abnormality in fetal heart rate and rhythm complicating labor and delivery; O90.81 Anemia of the puerperium; D64.9 Anemia, unspecified; Z3A.36 36 weeks gestation of pregnancy; Z37.0 Single live birth; Z23 Encounter for immunization
CPT/HCPCS: 36415; 76819; 85014; 85018; 85025; 85460; 86592; 86850; 86900; 86901; 88307; 90715; G0378; A6250; J0330; J0690; J1170; J1885; J2250; J2405; J2590; J2704; J2710; J2765; J3010; J7120

== ENCOUNTER 2021-04-19 20:09 | Outpatient (CLI) | payer MEDICAID, OTHER ==
[2021-04-19 21:10] VITALS: BP 113/66
[2021-04-19] MEDS ORDERED: LACTATED RINGERS 1,000 ML IV ONE (21:14)
[2021-04-19] MEDS ORDERED: ACETAMINOPHEN 500 MG TAB PO ONE (22:24)
[2021-04-19] MEDS ORDERED: diphenhydrAMINE 25 MG CAP PO ONE (22:25)
== END 2021-04-19 21:50 | disposition home or self-care (01) ==
LOC: TRG 20:09 → APU 20:18 → TRG 21:50
PROVIDERS: ATTEND Obstetrics & Gynecology
DX: Z34.92 Encounter for supervision of normal pregnancy, unspecified, second trimester (principal); Z3A.23 23 weeks gestation of pregnancy
CPT/HCPCS: 59025

== ENCOUNTER 2021-08-03 05:26 | Inpatient (IN) | payer OTHER, MEDICAID ==
--- NOTE | 2021-08-02 17:40 | History and Physical Report ---
History of Present Illness Date of examination: 07/27/21 Chief complaint: Elective repeat delivery History of present illness: Past History : 4 Term Births: 2 Premature Births: 1 Living Children: 3 Para: 3 Prev : 1 Prev. attempt? 0 Aborta: 0 Elect. Ab: 0 Spont. Ab: 0 Ectopics: 0 # 1 Delivery date: 10/15/2013 Weeks Gestation: 39 labor: no Delivery type: Anesthesia type: epidural Delivery location: [place] Sex: Male weight: 6-12 Comments: no problems # 2 Delivery date: 06/14/2017 Weeks Gestation: 37 Delivery type: Vaginal Anesthesia type: epidural Delivery location: [facility] Sex: male weight: 6.88 Comments: rupture of membranes # 3 Delivery date: 02/28/2019 Weeks Gestation: 36 Delivery type: Anesthesia type: general Delivery location: [facility] Infant Sex: male weight: 5.94 Comments: [facility] 2 Risk Factors: Smoked Tobacco Use: Never smoker Smokeless Tobacco Use: Never HIV high-risk behavior: low risk Caffeine use: <1 drinks per day Alcohol use: no Exercise: no Seatbelt use: preg-curriculum counselor % Dietary Counseling: pn yes PAP Smear History: Date of Last PAP Smear: 09/07/2020 Results: Normal (per pt) Past Medical History: Reviewed history from 11/22/2016 and no changes required: Negative Past Medical History Past Surgical History: Reviewed history from 02/28/2019 and no changes required: (02/28/2019) Past Medical History Abnormal PAP: negative VIELKA Exposure: negative Infertility: negative Uterine Anomaly: negative Uterine Surgery (not C/S): negative Other Gynecologic Problems: negative Infection History Hx of STD: none HIV Risk Eval: low risk Hepatitis B Risk Eval: low risk Personal hx. of genital herpes: no Partner hx. of genital herpes: no Rash, Viral, or Febrile illness since last LMP? no Varicella/Chicken Pox Status: Unknown TB Risk: no Genetic History Congenital Heart Defect: Mom: no Dad: no Dana Disease: Mom: no Dad: no Thalassemia Mom: no Dad: no Neural Tube Defect Mom: no Dad: no Down's Syndrome Mom: no Dad: no Andrey-Sachs Mom: no Dad: no Sickle Cell Disease/Trait Mom: no Dad: no Hemophilia Mom: no Dad: no Muscular Dystrophy Mom: no Dad: no Cystic Fibrosis Mom: no Dad: no Raghavendra Chorea Mom: no Dad: no Mental Retardation Mom: no Dad: no Fragile X Mom: no Dad: no Other Genetic/Chromosomal Disorder Mom: no Dad: no Child w/other defect Mom: no Dad: no Enviromental Exposures Xray Exposure: no Medication, drug, or alcohol use since LMP: no Chemical/Other Exposure: no Exposure to Cat Liter: no Hx of Parvovirus (Fifth Disease): no Occupational Exposure to Children: none Current Allergies (reviewed today): No known allergies Physical Exam General appearance: well nourished, healthy appearing, no distress Chest/Lungs: respiratory effort normal, lungs clear to auscultation Cardiovascular: normal rate and rhythm Abdomen/GI: soft, nontender Problem # 1: Maternal care for low transverse scar from previous delivery ([id number]) Risk associated with delivery were discussed, including but not limited to, bleeding that may require blood transfusions, infection that may be life threatening, injury to adjacent organs specifically bowel or bladder that may require further surgeries, or major vascular injury. She was also informed that when she has had a delivery(deliveries) she may require repeat deliveries for all subsequent pregnancies. Questions were encouraged and answered, consents were reviewed and signed. She voiced understanding and desired to proceed with delivery. She was instructed to not eat anything after midnight the morning of her surgery. Past History - Obstetrical History Expected Date of Delivery: 08/10/21 Actual Gestation: 38 Week(s) 6 Day(s) : 4 Medications and Allergies Allergies Allergy/AdvReac Type Severity Reaction Status Date / Time No Known Allergies Allergy Verified 06/14/17 00:38 Home Medications Medication Instructions Recorded Confirmed Last Taken Type Ibuprofen [Motrin 800 MG tab] 800 mg PO Q8HR PRN #30 tablet 06/15/17 Unknown Rx Lidocain2.5%/Prilocai2.5% [Emla] 5 gm TP ONCE PRN #1 tube 06/15/17 Unknown Rx Docusate Sodium [Colace] 100 mg PO BID PRN #60 capsule 03/01/19 Unknown Rx Ferrous Sulfate [Feosol 325 MG tab] 325 mg PO BID #60 tablet 03/01/19 Unknown Rx Ibuprofen [Motrin 800 MG tab] 800 mg PO TID PRN #30 tablet 03/01/19 Unknown Rx oxyCODONE /ACETAMINOPHEN [Percocet 1 - 2 tab PO Q4HR PRN #20 tablet 03/01/19 Unknown Rx 5/325 mg] Active Meds: Active Medications Citric Acid/Sodium Citrate (Bicitra Oral Liqd 30ml) 30 ml PO ONCE ONE Stop: 08/03/21 05:31 Famotidine (Famotidine 20 Mg/2 Ml Inj) 20 mg IV ONCE ONE Stop: 08/03/21 05:31 Lactated Ringer's (Lactated Ringers) 1,000 mls @ 2,250 mls/hr IV PREOP JOSH Stop: 08/04/21 05:57 Oxytocin/Sodium Chloride (Pitocin/Ns 30 Unit/500ml) 30 units in 500 mls @ 0 mls/hr IV TITR JOSH; Protocol Cefazolin Sodium (Ancef/Sterile Water 2 Gm/20 Ml) 2 gm in 20 mls @ 80 mls/hr IV PREOP NR; Protocol Metoclopramide HCl (Metoclopramide 10 Mg/2 Ml Inj) 10 mg IV ONCE ONE Stop: 08/03/21 05:31 Results All other labs normal. Assessment and Plan - Patient Problems (1) Maternal care due to low transverse uterine scar from previous delivery Status: Acute (2) 39 weeks gestation of Status: Acute
[2021-08-03] MEDS ORDERED: ceFAZolin/Water 2 GM/20 ML 2 GM/20 ML SYRINGE IV NR (05:30)
[2021-08-03] MEDS ORDERED: METOCLOPRAMIDE 10 MG/2 ML INJ IV ONE (05:30)
[2021-08-03] MEDS ORDERED: FAMOTIDINE 20 MG/2 ML INJ IV ONE (05:30)
[2021-08-03] MEDS ORDERED: BICITRA ORAL LIQD 30ML PO ONE (05:30)
[2021-08-03] MEDS ORDERED: OXYTOCIN DRIP 30 UNITS/500 ML BAG IV SCH ×2 (05:30→11:57)
[2021-08-03] MEDS: LACTATED RINGERS 1,000 ML IV SCH ×2 (05:50→06:39)
[2021-08-03 06:16] LABS: Hematocrit 32.3 % (30.3-42.9); Hemoglobin 10.5 gm/dl (10.1-14.3); Mean Corpuscular HGB Conc 33 % (30-34); Mean Corpuscular Volume 90 fl (79-97); Platelet Count 204 K/mm3 (140-440); Red Blood Count 3.58 M/mm3 (3.65-5.03); Red Cell Distribution Width 13.8 % (13.2-15.2)
[2021-08-03] MEDS ORDERED: BUPIVACAINE/PF (0.5%) 5 MG/1 ML 30 ML VIAL INFILTRATI ONE (07:15)
[2021-08-03] MEDS ORDERED: KETOROLAC 30 MG/1 ML INJ ONE (07:15)
[2021-08-03] MEDS ORDERED: dexAMETHasone 20 MG/5 ML VIAL ONE (07:15)
[2021-08-03] MEDS ORDERED: diphenhydrAMINE 50 MG/ML VIAL IV PRN (07:30)
[2021-08-03] MEDS ORDERED: PROMETHAZINE 25 MG RECT SUPP PR PRN (07:30)
[2021-08-03] MEDS ORDERED: NALOXONE 0.4 MG/1 ML INJ IV PRN (07:30)
[2021-08-03] MEDS ORDERED: PROMETHAZINE 25 MG TAB PO PRN (07:30)
[2021-08-03] MEDS ORDERED: NalbUPHINE 10 MG/1 ML INJ IV PRN (07:30)
[2021-08-03] MEDS ORDERED: ONDANSETRON 4 MG/2 ML INJ IV PRN (07:30)
--- NOTE | 2021-08-03 07:41 | Anesthesia Day of Surgery ---
Anesthesia Day of Surgery - Day of Surgery Patient Examined: Yes Patient H&P Reviewed: Yes Patient is NPO: Yes Beta Blockers: No Cardiac Clearance: No Pulmonary Clearance: No Pedro's Test: N/A
--- NOTE | 2021-08-03 07:42 | Anesthesia Consultation ---
Anesthesia Consult and Med Hx Date of service: 08/03/21 - Airway Anesthetic Teeth Evaluation: Good ROM Head & Neck: Adequate Mental/Hyoid Distance: Adequate Mallampati Class: Class II Intubation Access Assessment: Probably Good - Pulmonary Exam CTA: Yes - Cardiac Exam Cardiac Exam: RRR - Pre-Operative Health Status ASA Pre-Surgery Classification: ASA2 Proposed Anesthetic Plan: Epidural, Spinal Nerve Block: TAP - Pulmonary Hx Smoking: No Hx Asthma: No Hx Respiratory Symptoms: No SOB: No COPD: No Hx Pneumonia: No Hx Sleep Apnea: No - Cardiovascular System Hx Hypertension: No Hx Coronary Artery Disease: No Hx Heart Attack/AMI: No Hx Angina: No Hx Percutaneous Transluminal Coronary Angioplasty (PTCA): No Hx Cardia Arrhythmia: No Hx Pacemaker: No Hx Internal Defibrillator: No Hx Valvular Heart Disease: No Hx Heart Murmur: No Hx Peripheral Vascular Disease: No - Central Nervous System Hx Neuromuscular Disorder: No Hx Seizures: No CVA: No Hx Back Pain: No Hx Psychiatric Problems: No - Gastrointestinal Hx Ulcer: No Hx Gastroesophageal Reflux Disease: No - Endocrine Hx Renal Disease: No Hx End Stage Renal Disease: No Hx Cirrhosis: No Hx Liver Disease: No Hx Insulin Dependent Diabetes: No Hx Non-Insulin Dependent Diabetes: No Hx Thyroid Disease: No Hx Hypothyroidism: No Hx Hyperthyroidism: No - Hematic Hx Anemia: No Hx Sickle Cell Disease: No - Other Systems Hx Alcohol Use: No Hx Substance Use: No Hx Cancer: No Hx Obesity: No
[2021-08-03] MEDS ORDERED: LACTATED RINGERS 1,000 ML ONE (08:28)
--- NOTE | 2021-08-03 08:28 | Progress Note ---
Spinal Anesthesia Block - Spinal Anesthesia Block Start Time: 08:15 Stop Time: 08:23 Performed by:: LUIS F CARBAJAL ([facility]) Procedure: Spinal anesthesia block is being performed for [C/S]. H&P, labs have been reviewed. Patient's questions and concerns have been answered. Informed consent has been performed. Timeout has was performed. Patient in sitting position on side of bed. Sterile prep and drape was performed. 3 mL 1% lid ocaine skin wheal at L [3]-L [4]. Needle introducer advanced. 25-gauge spinal needle advanced, [+] CSF [-] blood. [Marcaine 10mg and Precedex 5mcg] Spinal dose was given. All needles removed. Patient tolerated procedure well.
[2021-08-03] MEDS ORDERED: PHENYLEPHRINE/NS 1,000 MCG/10 ML SYRINGE (OR USE) IV ONE (08:30)
[2021-08-03] MEDS ORDERED: MORPHINE 2 MG/1 ML INJ IV PRN (11:57)
[2021-08-03] MEDS ORDERED: LANOLIN/ZINC/DIMETHICONE (LANSINOH) 7 GM TP PRN (11:57)
[2021-08-03] MEDS ORDERED: MAGNESIUM HYDROXIDE (MOM) ORAL LIQD UDC PO PRN (11:57)
[2021-08-03] MEDS ORDERED: WITCH HAZEL/ GLYCERIN PAD TP PRN (11:57)
[2021-08-03] MEDS ORDERED: SIMETHICONE 80 MG CHEW TAB PO PRN (11:57)
[2021-08-03] MEDS ORDERED: D5W/LACTATED RINGERS 1,000 ML IV SCH (13:00)
[2021-08-03] MEDS: ceFAZolin/NS 1 GM/50 ML 1 GM/50 ML BAG IV SCH ×2 (15:33→23:47)
[2021-08-03] MEDS: ACETAMINOPHEN 500 MG TAB PO SCH ×2 (15:33→23:47)
[2021-08-03] MEDS: KETOROLAC 30 MG/1 ML INJ IV SCH ×2 (17:33→23:46)
[2021-08-03] MEDS: HYDROmorphone 1 MG/1 ML INJ IV PRN (18:26)
[2021-08-04 00:04] LABS: Hematocrit 31.3 % (30.3-42.9); Hemoglobin 10.3 gm/dl (10.1-14.3)
[2021-08-04] MEDS: HYDROmorphone 1 MG/1 ML INJ IV PRN ×2 (03:25→09:24)
[2021-08-04] MEDS ORDERED: TETANUS,DIPH,PERTUSS(ACELL) VACCINE 0.5 ML SYRINGE IM ONE (06:00)
[2021-08-04] MEDS: KETOROLAC 30 MG/1 ML INJ IV SCH ×2 (06:13→11:10)
--- NOTE | 2021-08-04 08:16 | Progress Note ---
Assessment and Plan Pt sitting in bed, no complaints voiced. Fundus firm, lochia scant, dressing clean, dry, and intact, H&H 10.3/31.3, and VSSAF. All questions addressed. - Patient Problems (1) delivery delivered Current Visit: No Status: Acute Plan to address problem: Continue PostOP pathway, advanced diet and activity as tolerated, anticipate D/C home tomorrow if stable Subjective - Subjective Date of service: 08/04/21 Patient reports: appetite normal, flatus : doing well Objective - Vital Signs Latest vital signs: Vital Signs Temp Pulse Resp BP Pulse Ox Pulse Ox 08/04/21 05:04 97.6 F 58 L 18 98/70 100 08/04/21 01:33 97.8 F 70 18 103/61 99 08/03/21 21:14 97.4 F L 57 L 16 100/51 99 08/03/21 20:00 99 08/03/21 16:36 97.5 F L 58 L 18 99/68 100 08/03/21 11:00 99 08/03/21 10:53 97.3 F L 59 L 16 103/64 99 08/03/21 10:30 67 15 107/67 98 08/03/21 10:15 59 L 14 106/73 100 08/03/21 10:00 63 16 103/71 100 08/03/21 09:45 54 L 18 102/68 99 08/03/21 09:35 60 18 100/69 99 08/03/21 09:30 67 18 101/47 97 08/03/21 09:25 68 18 99/43 98 08/03/21 09:20 97.6 F 69 18 91/34 97 Intake and Output 08/03/21 08/04/21 08/04/21 23:59 07:59 15:59 Intake Total 290 720 Output Total 350 1400 Balance -60 -680 Intake: IV 50 ANCEF/NS 1 GM/50 ML 1 gm 50 In 50 ml @ 100 mls/hr IV Q8H [facility] Rx#:[id number] Oral 240 Intake, Free Water 720 Output: Urine 350 1400 Indwelling Catheter 350 1200 Void 200 Other: Total, Intake Amount 240 Total, Output Amount 350 200 - Exam Cardiovascular: Present: Regular rate Lungs: Present: Normal air movement Abdomen: Present: normal appearance, soft Uterus: Present: normal, firm, fundal height below umbilicus Extremities: Present: normal Incision: Present: normal, dressed
[2021-08-04] MEDS ORDERED: diphenhydrAMINE 50 MG CAP PO SCH (09:00)
[2021-08-04] MEDS ORDERED: oxyCODONE /ACETAMINOPHEN 5-325MG TAB PO PRN (09:25)
--- NOTE | 2021-08-04 12:16 | Post Anesthesia Evaluation ---
- Post Anesthesia Evaluation Patient Participated: Yes Airway Patent: Yes Stable Respiratory Function: Yes Nausea/Vomiting: No Temp > 96.8F: Yes Pain Manageable: Yes Adequeate Hydration: Yes Anesthesia Complications: No Block Receding Appropriately: Yes Patient on Ventilator: No
--- NOTE | 2021-08-04 12:33 | Vascular Lab Report ---
DUPLEX DOPPLER LOWER EXTREMITY VEINS, RIGHT INDICATION / CLINICAL INFORMATION: redness and pain on back of rt thigh. TECHNIQUE: Duplex doppler imaging was performed through the veins of the right lower extremity using venous compression and other maneuvers. COMPARISON: None available. FINDINGS: RIGHT COMMON FEMORAL VEIN: Negative. RIGHT FEMORAL VEIN: Negative. RIGHT POPLITEAL VEIN: Negative. RIGHT CALF VEINS: Negative. ADDITIONAL FINDINGS: None. IMPRESSION: 1. No sonographic evidence for DVT in the right lower extremity. Signer Name: Yovani Quezada MD Signed: 08/04/2021 12:29 PM Workstation Name: [id number]
[2021-08-04] MEDS: ACETAMINOPHEN 500 MG TAB PO SCH ×2 (13:30→21:52)
[2021-08-04] MEDS: IBUPROFEN 800 MG TAB PO SCH (17:52)
[2021-08-04] MEDS ORDERED: NalbUPHINE 10 MG/1 ML INJ IV ONE (18:22)
--- NOTE | 2021-08-04 18:27 | Event Note ---
Date: 08/04/21 Rash on back of right thigh not improve after PO Benadryl, doppler showered no signs of DVT. Consulted Dr. Salas, and will treat w/ topical steroid cream. RN called and made aware of new orders.
[2021-08-04] MEDS ORDERED: TRIAMCINOLONE 0.1% CREAM 15 GM TP SCH (22:00)
[2021-08-05] MEDS ORDERED: IBUPROFEN 800 MG TAB PO SCH (02:00)
[2021-08-05] MEDS: IBUPROFEN 800 MG TAB PO SCH ×2 (02:31→10:45)
[2021-08-05] MEDS: ACETAMINOPHEN 500 MG TAB PO SCH ×2 (05:43→12:45)
[2021-08-05 09:49] VITALS: BP 115/69
--- NOTE | 2021-08-05 10:02 | Operative Report ---
Operative Report Operative Report: Date of operation: 08/03/2021 Pre-operative diagnosis: 1. Intrauterine at 39 weeks gestational age 2. Previous delivery 3. Desires repeat delivery 4. BMI 31.1 kg/m2 Post-operative diagnosis: 1. Intrauterine at 39 weeks gestational age 2. Previous delivery 3. Desires repeat delivery 4. BMI 31.1 kg/m2 Procedure name(s): Repeat low transverse uterine incision Surgeon: Chelsea Andrade MD Securities Analyst: Anahi Kenney Anesthesia: Spinal EBL: 212 mL Urine output: 50 mL of clear urine out at the end of the procedure Fluids: 2200 mL Findings: Liveborn male infant weight 7 Lbs. 9 oz. Apgars of 9 and 9 at one and 5 minutes Procedure: Patient was taking to the operating room. Spinal anesthesia was placed. Patient was then prepped and draped in the usual sterile fashion Timeout was performed. Once an appropriate level of anesthesia was noted, a Pfannenstiel incision was made and extended the fascia which was incised and extended lateral direction. The overlying fascia was sharply dissected away from the underlying rectus muscles in the superior inferior direction. The midline was entered bluntly. Bladder blade was placed. Vesicouterine fold was incised with blunt dissection bladder flap was created. A transverse incision was made in the lower uterine segment and extended superolateral direction with finger fractionation. Clear fluid was noted. Infant was delivered from the cephalic position, with spontaneous cry and excellent tone. Mouth and nose bulb suctioned. Cord was doubly clamped and cut infant was given to the resuscitation team present. Placenta was delivered. The uterus was exteriorized and cleaned of any further placental tissue and products of conception. Uterine incision was approximated using 0 Vicryl in a running interlocking stitch followed by further suture of 0 Vicryl in imbricating fashion. When hemostasis was noted the uterus was allowed back in the pelvic cavity. Pelvis was irrigated with warm normal saline. Once hemostasis was noted the rectus muscles were approximated using 0 Vicryl interrupted simple stitches 3. Once hemostasis was noted the fascia was approximated using 0 Vicryl simple running stitch. The incision was irrigated with warm saline, once hemostasis as noted, the subcuticular adipose tissue was reapproximated using 3- 0 Vicryl in a simple running fashion. Skin was approximated using 4-0 Vicryl on a Shashi needle in a subcuticular manner. Counts were correct x3. Patient tolerated the procedure well, she was taken to recovery room in stable condition.
--- NOTE | 2021-08-05 12:01 | Discharge Summary ---
Providers - Providers Date of Admission: 08/03/21 05:26 Date of discharge: 08/05/21 (Pt has a very strong desire to go home.) Attending physician: VERO TAY 08/03/21 11:57 Consult to Grading [employer]eder [CONS] Routine Reason For Exam: Primary care physician: VERO TAY Hospitalization Reason for admission: section Delivery: Procedure: repeat low transverse Episiotomy: none Laceration: none Incision: normal, dry, intact complications: none Discharge diagnosis: IUP at term delivered [place] baby: male Hospital course: S: Pt doing well. Ambulating, voiding, and passing flatus okay. O: VSS. H/H 10.3/31.3. Incision open to air, steri strips intact. No drainage or s/sx of infection noted. Minimal bleeding noted. A: 31 y.o. s/p rpt @ term. In good condition and can be discharged home. P: Discharge home with instructions. Pt to schedule incision check and son's circumcision in the office in1 week. Condition at discharge: Good Disposition: 01 HOME / SELF CARE / HOMELESS Plan - Discharge Medications Prescriptions: Docusate Sodium [Colace] 100 mg PO BID PRN #30 capsule PRN Reason: Constipation Lidocain2.5%/Prilocai2.5% [Emla] 5 gm TP ONCE #1 tube Ferrous Sulfate [Feosol 325 MG tab] 325 mg PO DAILY #90 tablet Hydrocortisone [Hydrocortisone 2.5% LOTION] 1 applicatio TP TID #1 lotion Ibuprofen [Motrin 800 MG tab] 800 mg PO TID PRN #30 tablet PRN Reason: Pain oxyCODONE /ACETAMINOPHEN [Percocet 5/325 mg] 1 - 2 tab PO Q6HR PRN #14 tablet PRN Reason: Pain - Provider Discharge Summary Activity: routine, no sex for 6 weeks, no heavy lifting 4 weeks, no strenuous exercise Diet: routine Instructions: routine Additional instructions: [] Smoking cessation referral if applicable(refer to patient education folder for contact #) [] Refer to [facility]'s [facility] Booklet Call your doctor immediately for: * Fever > 100.5 * Heavy vaginal bleeding ( >1 pad per hour) * Severe persistent headache * Shortness of breath * Reddened, hot, painful area to leg or breast * Drainage or odor from incision. * Keep incision clean and dry at all times and follow doctor's instructions regarding bathing/showering Congratulations on your baby boy!! Please schedule your son's circumcision appointment in the office in 1 week. You have been prescribed EMLA cream for your son's circumcision. Please do not use this cream at home but bring it with you to your son's circumcision appointment. Please also schedule your incision check in the office in 1 week. Should you have any questions or concerns after discharge, please do not hesitate to call the office at [phone]. - Follow up plan Follow up: VERO TAY MD [Primary Care Provider] - 7 Days
--- NOTE | 2021-08-05 12:21 | Event Note ---
Date: 08/05/21 (Headache unrelieved by medication.) Pt states that she has a frontal FOSTER that is not relieved by pain medication. Has not told staff regarding this FOSTER. Denies spots before her eyes, blurred vision, chest pain, shortness of breath, and upper abdominal pain. Her blood pressure ranges have been 90's-110's/50-70's. Will have anesthesia to evaluate.
--- NOTE | 2021-08-05 12:32 | Progress Note ---
Subjective Date of service: 08/05/21 Principal diagnosis: headache Interval history: Patient complaint of headache onset this AM. Postural in natural and sensitive to light. Discussed blood patch with patient which she refused. Educated on importance of PO fluids, and caffeine. Patient can come back to ER if symptoms don't improve or she changes her mind. Discussed with Monserrat YEUNG, and use of fiorcet to help symptoms. Objective - Constitutional Vitals: Vital Signs - 12hr 08/05/21 08/05/21 08/05/21 01:24 02:31 05:43 Temperature 98.1 F Pulse Rate 69 Respiratory 18 20 20 Rate Blood Pressure 101/50 O2 Sat by Pulse 99 Oximetry O2 Sat by Pulse Oximetry [ Anterior Bilateral Throughout] 08/05/21 08/05/21 08:30 08:47 Temperature 98.4 F Pulse Rate 70 Respiratory 18 Rate Blood Pressure 115/69 O2 Sat by Pulse 98 Oximetry O2 Sat by Pulse 99 Oximetry [ Anterior Bilateral Throughout] - Labs CBC & Chem 7: 08/03/21 22:54
--- NOTE | 2021-08-05 12:37 | Event Note ---
Date: 08/05/21 (Pt desires discharge home.) Spoke with El from anesthesia regarding post procedural FOSTER. Pt desires discharge home. States that she spoke with anesthesia and declined blood patch. Has had Extra Strength Tylenol for pain. If Tylenol brings pain relief, will discharge home.
== END 2021-08-05 15:10 | disposition home or self-care (01) | DRG 788 ==
LOC: APU 05:26 → OB 10:42
PROVIDERS: ADMIT Obstetrics & Gynecology; ATTEND Obstetrics & Gynecology
PROC: 10D00Z1 Extraction of Products of Conception, Low, Open Approach (ICD-10-PCS; principal; 2021-08-03)
DX: O34.211 Maternal care for low transverse scar from previous cesarean delivery (principal); Z3A.39 39 weeks gestation of pregnancy; Z37.0 Single live birth; Z20.822 Contact with and (suspected) exposure to COVID-19
CPT/HCPCS: 36415; 59025; 85014; 85018; 85027; 86592; 86850; 86900; 86901; 90715; 99211; G0378; G0463; J0690; J1100; J1170; J1885; J2270; J2300; J2370; J2590; J2765; J3490; J7120; J7121; U0003